=== PATIENT | male | born 1985 | race Two or more races ===

== ENCOUNTER 2020-11-16 17:36 | Emergency (ER) | payer OTHER ==
[~2020-11-16] VITALS: Ht 180.3 cm; Wt 77.1 kg
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
--- NOTE | 2020-11-16 18:39 | NUR ---
The patient alert and oriented x4. Denies pain. Respiration regular and unlabroed. Denies SOB. Patient discharged n stable condition. patient is in custody and left ER with officers. Written and verbal after care instructions given. Patient verbalizes understanding of instruction. left ER in stable condition.
[2020-11-16 18:41] VITALS: BP 152/87
== END 2020-11-16 18:42 ==
LOC: ER 17:42
DX: Z02.89 Encounter for other administrative examinations (principal); F15.10 Other stimulant abuse, uncomplicated; F11.10 Opioid abuse, uncomplicated
CPT/HCPCS: 82962-TC